=== PATIENT | male | born 1995 | race African-American/Black ===

== ENCOUNTER 2017-03-05 18:46 | Emergency (ER) | payer BC, MEDICAID ==
[2017-03-05 18:51] VITALS: BP 130/82
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
[2017-03-05] MEDS ORDERED: HYDROCODONE/ACETAMINOPHEN 5-325 MG 6 TAB/DSPK PO PRN (19:58)
[2017-03-05] MEDS ORDERED: PENICILLIN V POTASSIUM 500 MG TABLET PO ONE (19:58)
[2017-03-05] MEDS ORDERED: LIDOCAINE 2% VISCOUS SOLN 20 ML UDCUP PO ONE (19:59)
== END 2017-03-05 20:25 | disposition home or self-care (01) ==
LOC: ER 18:46
DX: K02.9 Dental caries, unspecified (principal)
CPT/HCPCS: 99282; J3490